=== PATIENT | female | born 1960 | race African-American/Black ===

== ENCOUNTER 2016-05-27 10:20 | Inpatient (IN) ==
[2016-05-27] MEDS ORDERED: 0.9 % Sodium Chloride 1,000 ML IVC ONE (10:29)
[2016-05-27] MEDS ORDERED: Ondansetron 4 MG/2 ML VIAL IVP STA (10:29)
[2016-05-27] MEDS ORDERED: *HR* HYDROmorphone (PF) 1 MG/ML SYRINGE IVP STA (10:55)
[2016-05-27 11:12] LABS: Basophils % 0.3 %; Eosinophils % 0.1 %; Hematocrit 36.2 % (35.3-44.9); Hemoglobin 12.5 g/dL (11.5-15.4); Immature Granulocytes % 0.3 % (0-4); Lymphocytes # 0.8 K/mcL (0.6-4.6); Lymphocytes % 6.9 %; Mean Corpuscular HGB Conc 34.5 g/dL (31.6-35.5); Mean Corpuscular Hemoglobin 29.7 pg (28.0-33.3); Mean Platelet Volume 10.5 fL (9.4-12.4); Monocytes # 0.2 K/mcL (0.0-1.3); Monocytes % 1.6 %; Neutrophils # 10.6 K/mcL (1.6-8.9); Platelet Count 335 K/mcL (140-400); Red Blood Count 4.21 M/mcL (3.82-4.97); Red Cell Distribution Width 12.7 % (11.5-14.5); Segmented Neutrophils % 90.8 %
[2016-05-27 11:18] LABS: INR 1.2; Prothrombin Time 13.4 Seconds (9.4-12.1)
--- NOTE | 2016-05-27 11:26 | Emergency Department Note ---
Disposition Clinical Impression: Dehydration Disposition: Admitted As Inpatient Condition: Fair Nausea/Vomiting/Diarrhea HPI - General Chief complaint: ED Nausea/Vomiting/Diarrhea Stated complaint: Vomiting since 1 am, fever/chills Time Seen by Provider: 05/27/16 10:37 Source: family Limitations: no limitations Nursing Notes Reviewed: Yes Vital Signs Reviewed: Yes - History of Present Illness HPI Narrative: Patient is a 56-year-old female who has a history of diabetes. History of strokes. She was brought in by private automobile with complaint of nausea vomiting diarrhea and abdominal pain. Accu-Chek in our ER is 457 mg/dL Pt Subjective Complaint: nausea, vomiting, diarrhea, abdominal pain Onset (ago): hour(s) - Related Data Home Medications Medication Instructions Recorded Confirmed Bethanechol [Urecholine] 25 mg PO TID 04/07/15 03/19/16 Gabapentin [Neurontin] 1,200 mg PO TID 04/07/15 03/19/16 Losartan [Cozaar] 50 mg PO DAILY 04/07/15 03/19/16 Albuterol Sulfate [Albuterol 2 puff IH QID PRN 02/27/16 03/19/16 Inhaler] Amlodipine [Norvasc] 5 mg PO DAILY 02/27/16 03/19/16 Budesonide/Formoterol 80/4.5 2 puff IH BID 02/27/16 03/19/16 [Symbicort 80/4.5] Calcium Carbonate/Vitamin D3 1 tab PO BIDWM 02/27/16 03/19/16 [Calcium 500-Vit D3 200 Caplet] Carboxymethylcellulos/Glycerin 1 drop BOTH EYES TID PRN 02/27/16 03/19/16 [Refresh Optive Gel Eye Drops] Cholecalciferol (Vitamin D3) 4,000 unit PO DAILY 02/27/16 03/19/16 [Vitamin D3] Famotidine [Pepcid] 20 mg PO BID 02/27/16 03/19/16 Insulin ASPART [Novolog Flexpen] 0 unit SQ TIDAC MDD per sliding 02/27/16 scale Lipase/Protease/Amylase [Creon Dr 1 each PO TIDWM 02/27/16 03/19/16 6,000 Units Capsule] Metformin [Glucophage] 500 mg PO BIDWM 02/27/16 03/19/16 Multivitamin-Min/Iron/FA/Vit K 1 each PO DAILY 02/27/16 03/19/16 [Multi-Day Plus Minerals Tablet] Omeprazole [PriLOSEC] 40 mg PO DAILY 02/27/16 03/19/16 TraMADol [Ultram] 100 mg PO QID PRN 02/27/16 03/19/16 Insulin Glargine [Lantus] 34 unit SQ DAILY 03/19/16 03/19/16 Loperamide [Imodium] 4 mg PO DAILY 03/19/16 03/19/16 Menthol [Icy Hot] 1 patch TD DAILY 03/19/16 03/19/16 Previous Rx's Medication Instructions Recorded Atorvastatin [Lipitor] 80 mg PO HS #60 tablet 03/01/16 Clopidogrel [Plavix] 75 mg PO DAILY #30 tablet 03/01/16 Nicotine Patch [Nicoderm] 14 mg TD DAILY #30 patch.td24 03/01/16 Paroxetine [Paxil] 20 mg PO DAILY #30 tablet 03/01/16 Alprazolam [Xanax 0.25 MG Tablet] 0.25 mg PO TID PRN #10 tablet 03/02/16 Promethazine [Phenergan] 25 mg PO Q8HR #10 tablet 03/19/16 Carvedilol 25 mg PO BID 30 Days 03/22/16 CloNIDine HCl 0.1 mg PO TID 30 Days 03/22/16 Hydrochlorothiazide 25 mg PO QPM 30 Days 03/22/16 Allergies Allergy/AdvReac Type Severity Reaction Status Date / Time codeine AdvReac Itching Verified 02/24/16 10:25 All systems ED: reviewed and negative except as stated. Past Medical History - Past Medical History Medical history: Reports: COPD, CVA, diabetes, hyperlipidemia, hypertension, other Surgical history: Reports: cholecystectomy, hysterectomy, orthopedic, other Psychiatric history: Reports: anxiety, depression NASCAR DRIVER history: Reports: no NASCAR DRIVER history, bilateral tubal ligation - Social History Smoking Status: Former smoker Smokeless Tobacco Status: No Alcohol use: Reports: none Drug use: Reports: none Physical Exam - General Limitations: no limitations General appearance: alert, in no apparent distress - Head Head exam: atraumatic - Eye Eye exam: Present: normal appearance - ENT ENT exam: normal exam - Neck Neck exam: Present: normal inspection - Chest Chest inspection: Present: normal inspection - Respiratory Respiratory exam: Present: normal lung sounds bilaterally - Cardiovascular Cardiovascular exam: Present: tachycardia - Abdominal Exam Abdominal exam: Present: soft, normal bowel sounds. Absent: distention, guarding, rebound, rigidity - Rectal Exam Rectal exam: Present: deferred - Extremities Exam Extremities exam: Present: normal inspection - Expanded Lower Extremity Exam Gait: observed and normal - Back Exam Back exam: Present: normal inspection - Neurological Exam Neurological exam: Present: alert, oriented X3 - Psychiatric Psychiatric exam: Present: normal affect - Skin Skin exam: Present: warm Course Vital Signs Temperature 98.0 F 05/27/16 10:24 Pulse Rate 126 05/27/16 10:24 Respiratory Rate 20 05/27/16 10:24 Blood Pressure 198/110 05/27/16 10:24 O2 Sat by Pulse Oximetry 97 05/27/16 10:24 Temperature 99.5 F 05/27/16 18:41 Pulse Rate 115 05/27/16 18:41 Respiratory Rate 14 05/27/16 18:41 Blood Pressure 190/96 05/27/16 18:41 O2 Sat by Pulse Oximetry 99 05/27/16 18:41 Oxygen Delivery Oxygen Delivery Room Air Nausea/Vomiting/Diarrhea - MDM Narrative Medical decision making narrative: Differential: Diabetic emergency versus diabetic ketoacidosis versus acute abdomen - Lab Data Lab results reviewed: Yes I reviewed the patient's lab results. Result diagrams: 05/27/16 11:00 05/27/16 11:00 Lab Results 05/27/16 05/27/16 05/27/16 Range/Units 11:00 11:00 11:00 WBC 11.7 H (4.3-11.1) K/mcL RBC 4.21 (3.82-4.97) M/mcL Hgb 12.5 (11.5-15.4) g/dL Hct 36.2 (35.3-44.9) % MCV 86.0 (83.0-100.0) fL MCH 29.7 (28.0-33.3) pg MCHC 34.5 (31.6-35.5) g/dL RDW 12.7 (11.5-14.5) % Plt Count 335 (140-400) K/mcL MPV 10.5 (9.4-12.4) fL Immature Gran % 0.3 (0-4) % Seg Neutrophils % 90.8 % Lymphocytes % 6.9 % Monocytes % 1.6 % Eosinophils % 0.1 % Basophils % 0.3 % Neutrophils # 10.6 H (1.6-8.9) K/mcL Lymphocytes # 0.8 (0.6-4.6) K/mcL Monocytes # 0.2 (0.0-1.3) K/mcL Eosinophils # 0.0 (0.0-0.6) K/mcL Basophils # 0.0 (0.0-0.2) K/mcL PT 13.4 H (9.4-12.1) Seconds INR 1.2 Sodium 139 (136-145) mEq/L Potassium 4.7 H (3.5-4.5) mEq/L Chloride 102 (98-109) mEq/L Carbon Dioxide 19 (19-29) mEq/L BUN 19 (7-20) mg/dL Creatinine 1.55 H (0.57-1.11) mg/dL Est GFR ( Amer) 42 L (> 60) Est GFR (Non-Af Amer) 35 L (> 60) BUN/Creatinine Ratio 12 (6-26) Glucose 534 H* (70-99) mg/dL POC Glucose (58-89) Calculated Osmolality 314 H (280-300) Calcium 10.7 (8.6-10.8) mg/dL Total Bilirubin 0.6 (0.2-1.2) mg/dL AST 18 (5-34) Units/L ALT 19 (0-55) Units/L Alkaline Phosphatase 159 H (38-126) Units/L Serum Total Protein 8.0 (6.0-8.3) g/dL Albumin 3.8 (3.5-5.0) g/dL Globulin 4.2 H (2.4-3.5) g/dL Albumin/Globulin Ratio 0.9 L (1.1-2.2) Urine Color (Yellow) Urine Clarity (Clear) Urine pH (5.0-8.0) pH Units Ur Specific [place] (1.010-1.025) Urine Protein (Neg-Trace) mg/dL Urine Glucose (UA) (Normal) mg/dL Urine Ketones (Negative) mg/dL Urine Blood (Negative) Urine Nitrite (Negative) Urine Bilirubin (Negative) Urine Urobilinogen (Normal) mg/dL Ur Leukocyte Esterase (Negative) Urine Microscopic RBC (0-3) per hpf Urine Microscopic WBC (0-3) per hpf Ur Squamous Epith Cells (None-Few) per lpf Amorphous Sediment (Few) Ur Culture Indicated? (NO) 05/27/16 05/27/16 Range/Units 11:23 12:00 WBC (4.3-11.1) K/mcL RBC (3.82-4.97) M/mcL Hgb (11.5-15.4) g/dL Hct (35.3-44.9) % MCV (83.0-100.0) fL MCH (28.0-33.3) pg MCHC (31.6-35.5) g/dL RDW (11.5-14.5) % Plt Count (140-400) K/mcL MPV (9.4-12.4) fL Immature Gran % (0-4) % Seg Neutrophils % % Lymphocytes % % Monocytes % % Eosinophils % % Basophils % % Neutrophils # (1.6-8.9) K/mcL Lymphocytes # (0.6-4.6) K/mcL Monocytes # (0.0-1.3) K/mcL Eosinophils # (0.0-0.6) K/mcL Basophils # (0.0-0.2) K/mcL PT (9.4-12.1) Seconds INR Sodium (136-145) mEq/L Potassium (3.5-4.5) mEq/L Chloride (98-109) mEq/L Carbon Dioxide (19-29) mEq/L BUN (7-20) mg/dL Creatinine (0.57-1.11) mg/dL Est GFR ( Amer) (> 60) Est GFR (Non-Af Amer) (> 60) BUN/Creatinine Ratio (6-26) Glucose (70-99) mg/dL POC Glucose 457 H* (58-89) Calculated Osmolality (280-300) Calcium (8.6-10.8) mg/dL Total Bilirubin (0.2-1.2) mg/dL AST (5-34) Units/L ALT (0-55) Units/L Alkaline Phosphatase (38-126) Units/L Serum Total Protein (6.0-8.3) g/dL Albumin (3.5-5.0) g/dL Globulin (2.4-3.5) g/dL Albumin/Globulin Ratio (1.1-2.2) Urine Color Yellow (Yellow) Urine Clarity Slightly Cloudy A (Clear) Urine pH 6.0 (5.0-8.0) pH Units Ur Specific [place] 1.015 (1.010-1.025) Urine Protein >=300 H (Neg-Trace) mg/dL Urine Glucose (UA) >=1000 H (Normal) mg/dL Urine Ketones 40 H (Negative) mg/dL Urine Blood Moderate H (Negative) Urine Nitrite Negative (Negative) Urine Bilirubin Negative (Negative) Urine Urobilinogen Normal (Normal) mg/dL Ur Leukocyte Esterase Negative (Negative) Urine Microscopic RBC 3-5 H (0-3) per hpf Urine Microscopic WBC 0-3 (0-3) per hpf Ur Squamous Epith Cells Few (None-Few) per lpf Amorphous Sediment Many H (Few) Ur Culture Indicated? NO (NO) - Radiology Data Radiology results reviewed: Yes I reviewed the patient's radiology results. ITS Impressions Abdomen/Pelvis CT 05/27/16 10:33 IMPRESSION: Small to moderate moderate hiatal hernia. Gas within the nondependent urinary bladder, possibly related to recent instrumentation. Correlation is recommended. D/ / Inna Kapoor Cha, MD / Inna Kapoor Cha, MD Interpreting Provider: Inna Kapoor Cha, MD
[2016-05-27 11:27] LABS: Albumin 3.8 g/dL (3.5-5.0); Albumin/Globulin Ratio 0.9 (1.1-2.2); Bilirubin,Total 0.6 mg/dL (0.2-1.2); Calcium 10.7 mg/dL (8.6-10.8); Globulin 4.2 g/dL (2.4-3.5); Potassium 4.7 mEq/L (3.5-4.5)
[2016-05-27] MEDS ORDERED: Insulin Regular, Human 100 UNIT/ML SQ STA (11:37)
[2016-05-27 12:05] LABS: Bilirubin,Urine Negative (Negative); Blood,Urine Moderate (Negative); Clarity,Urine Slightly Cloudy (Clear); Color,Urine Yellow (Yellow); Glucose,Urine (UA) >=1000 mg/dL (Normal); Ketones,Urine 40 mg/dL (Negative); Leukocyte Esterase,Urine Negative (Negative); Nitrite,Urine Negative (Negative); Protein,Urine >=300 mg/dL (Neg-Trace); Specific Gravity,Urine 1.015 (1.010-1.025); Urobilinogen,Urine Normal (Normal)
[2016-05-27 12:13] LABS: Amorphous Sediment,Urine Many (Few); Squamous Epithelial Cell,Urine Few per lpf (None-Few); WBC,Urine 0-3 per hpf (0-3)
[2016-05-27] MEDS ORDERED: 0.9 % Sodium Chloride 1,000 ML IVC SCH (13:50)
[2016-05-27] MEDS ORDERED: Artificial Tears SOLN 15 ML BOTTLE BOTH EYES PRN (13:50)
[2016-05-27] MEDS ORDERED: Naloxone 0.4 MG/ML INJ IVP PRN (13:50)
[2016-05-27] MEDS ORDERED: *HR* Propranolol 1 MG/ML VIAL IVP ONE (14:37)
[2016-05-27] MEDS: Gabapentin 400 MG CAPSULE PO SCH ×2 (16:11→21:12)
[2016-05-27] MEDS: *HR* Metformin 500 MG TABLET PO SCH (16:11)
--- NOTE | 2016-05-27 16:51 | Internal Med History&Physical ---
Date of Encounter: 05/27/16 Time of Encounter: 16:20 Assessment and Plan (1) Acute gastroenteritis Current visit: Yes Status: Acute She will be given IV fluids and prn anti-emetics. Further workup will be done as needed. (2) Chronic kidney disease, stage 3 Current visit: No Status: Chronic Will monitor renal indices (3) Diabetes type 2, uncontrolled Current visit: No Status: Chronic We will check hemoglobin A1c in a.m. We will hold metformin because of renal function. Continue Levemir and do Accu-Cheks with SSI.. Qualifiers: Diabetes mellitus complication status: with kidney complications Diabetes mellitus complication detail: with chronic kidney disease Diabetes mellitus ferry terminal supervisor insulin use: with ferry terminal supervisor use Chronic kidney disease stage: stage 3 (moderate) Qualified Code(s): E11.22 - Type 2 diabetes mellitus with diabetic chronic kidney disease; E11.65 - Type 2 diabetes mellitus with hyperglycemia; N18.3 - Chronic kidney disease, stage 3 (moderate); Z79.4 - terminal makeup operator (current) use of insulin (4) Hypertension Current visit: No Status: Chronic Continue Norvasc, Coreg, and increase clonidine. We will hold Cozaar and HCTZ because of renal function. Qualifiers: Hypertension type: essential hypertension Qualified Code(s): I10 - Essential (primary) hypertension (5) Urinary retention Current visit: No Status: Suspected Continue Urecholine. Internal Medicine - H&P: HPI Chief complaint: Vomiting and diarrhea Admitted From: Home Plans for Post Hospital Care: Home History of present illness: Ms. Oakes is a 56 year old female who came to the emergency room complaining of vomiting and diarrhea onset May 24. She has some diffuse abdominal discomfort that seems to be most noticeable in her left lower abdominal area. She denies melena or hematochezia. She was evaluated in emergency room and felt to have gastroenteritis. She was admitted to [facility] floor for ongoing care needs. GI history is positive for cholecystectomy. She has history of pancreatitis and takes pancreatic enzyme replacements. She denies disorders of her liver. She does have GERD. Past Med Surg Social Fam HX - Past Medical History Medical history: COPD, CVA, diabetes, hyperlipidemia, hypertension, other Psychiatric history: anxiety, depression - Past Surgical History Surgical History: cholecystectomy, hysterectomy, orthopedic, other - Social History Smoking Status: Former smoker Smokeless Tobacco Status: No Alcohol use: none Drug use: none - Family History Mother Adopted: No Family Member Ethnicity: Non- Living Status: Hx Family Cardiac Disorders: Yes (HTN) Hx Family Respiratory Disorders: No Hx Family Cancer: No Hx Family GI Disorders: No Hx Family Endocrine Disorder: Yes Hx Family Neuromuscular Disorders: No Hx Family Neurologic Disorders: No Hx Family HEENT Disorders: Yes (Goiter) Hx Family Autoimmune Disorders: No Internal Medicine - H&P: Meds Bethanechol [Urecholine] 25 mg PO TID 04/07/15 [History] Gabapentin [Neurontin] 1,200 mg PO TID 04/07/15 [History] Losartan [Cozaar] 50 mg PO DAILY 04/07/15 [History] Albuterol Sulfate [Albuterol Inhaler] 2 puff IH QID PRN 02/27/16 [History] Amlodipine [Norvasc] 5 mg PO DAILY 02/27/16 [History] Budesonide/Formoterol 80/4.5 [Symbicort 80/4.5] 2 puff IH BID 02/27/16 [History ] Calcium Carbonate/Vitamin D3 [Calcium 500-Vit D3 200 Caplet] 1 tab PO BIDWM 08/08 [History] Carboxymethylcellulos/Glycerin [Refresh Optive Gel Eye Drops] 1 drop BOTH EYES TID PRN 02/27/16 [History] Cholecalciferol (Vitamin D3) [Vitamin D3] 4,000 unit PO DAILY 02/27/16 [History] Famotidine [Pepcid] 20 mg PO BID 02/27/16 [History] Insulin ASPART [Novolog Flexpen] 0 unit SQ TIDAC MDD per sliding scale 02/27/16 [History] Lipase/Protease/Amylase [Creon Dr 6,000 Units Capsule] 1 each PO TIDWM 02/27/16 [History] Metformin [Glucophage] 500 mg PO BIDWM 02/27/16 [History] Multivitamin-Min/Iron/FA/Vit K [Multi-Day Plus Minerals Tablet] 1 each PO DAILY 02/27/16 [History] Omeprazole [PriLOSEC] 40 mg PO DAILY 02/27/16 [History] TraMADol [Ultram] 100 mg PO QID PRN 02/27/16 [History] Atorvastatin [Lipitor] 80 mg PO HS #60 tablet 03/01/16 [Rx] Clopidogrel [Plavix] 75 mg PO DAILY #30 tablet 03/01/16 [Rx] Nicotine Patch [Nicoderm] 14 mg TD DAILY #30 patch.td24 03/01/16 [Rx] Paroxetine [Paxil] 20 mg PO DAILY #30 tablet 03/01/16 [Rx] Alprazolam [Xanax 0.25 MG Tablet] 0.25 mg PO TID PRN #10 tablet 03/02/16 [Rx] Insulin Glargine [Lantus] 34 unit SQ DAILY 03/19/16 [History] Loperamide [Imodium] 4 mg PO DAILY 03/19/16 [History] Menthol [Icy Hot] 1 patch TD DAILY 03/19/16 [History] Promethazine [Phenergan] 25 mg PO Q8HR #10 tablet 03/19/16 [Rx] Carvedilol 25 mg PO BID 30 Days 03/22/16 [Rx] CloNIDine HCl 0.1 mg PO TID 30 Days 03/22/16 [Rx] Hydrochlorothiazide 25 mg PO QPM 30 Days 03/22/16 [Rx] Allergies codeine Adverse Reaction (Verified 02/24/16 10:25) Itching All Systems PM: A 10-system review of systems was performed and is negative for pertinent findings except as documented above in the HPI. Review of systems: Gen.: Her weight has decreased from 103 kg in May 2015 to 85.79 kg at present. Cardiovascular: She has history of hypertension but denies RI heart failure angina DVT or pulmonary embolus. She had an echocardiogram 07/07/2015 which showed LVEF of 65-70% with moderate LV diastolic dysfunction. Left atrial size was enlarged at 4.9 cm. The interventricular septum and posterior wall thickness measurements were 0.9 cm each. There was mild tricuspid regurgitation noted. A Regadenoson nuclear stress test done 04/08/2015 showed no evidence of ischemia or infarct. The LVEF was 67%. Respiratory: She smoked from age 19 until 4 months ago. She smoked up to one pack per day. She does not were home oxygen and has not had PFTs and has not been tested for HUONG. GI: As per history of present illness : She has CKD stage 3-4. 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 She states her bladder empties adequately on the medication. She denies hematuria dysuria or kidney stones Neurologic: She has history of diabetic neuropathy. She had a stroke January 2016 leaving her with left arm and leg weakness and dysphasia. She denies seizures Endocrine: She was diagnosed with DM2 in 1988. She has history of goiter and hyperlipidemia Hematology/oncology: She denies internal malignancies. She is had anemia in the past which has resolved Psychiatric: She has depression but no significant anxiety or other mental health issues Musk skeletal: She has DJD and has had "tennis elbow" on the left several years ago. She has not had documented gout but uric acid level was elevated at 6.9 on 03/21/2016. - Constitutional Vitals: Temp Pulse Resp BP Pulse Ox 98.5 F 130 18 216/125 99 05/27/16 14:17 05/27/16 14:17 05/27/16 14:17 05/27/16 14:17 05/27/16 14:17 Exam: Gen.: She is a well-developed well-nourished female who appears in no severe distress at present time HEENT: Head is atraumatic and normocephalic. Eyes: EOMI. There is no scleral icterus. Mouth: Mucosa is moist. Neck: Supple and nontender. There is no thyromegaly or adenopathy noted. Heart: Regular without murmurs gallops or ectopics per Lungs: No wheezes or crackles are heard. Abdomen: Bowel sounds are diminished. Abdomen is nontender to palpation. She is nauseated and had dry heaves during examination Extremities: There is no cyanosis edema or clubbing noted. Dorsalis pedis and posttibial pulses are trace palpable bilaterally. Neurologic: Mental status: She is able to speak but requires more concentration pronouncing her words than normal. Cranial nerves: Smile is symmetric. Forehead wrinkles bilaterally. Tongue protrudes midline. EOMI. Motor: There is no pronator drift. Rapid finger movements are delayed bilaterally and less accurate on the left hand than the right. She is left-handed. Cerebellar: Finger to nose is intact bilaterally. Skin: Warm and dry Internal Med - H&P Results - Labs CBC & Chem 7: 05/27/16 11:00 05/27/16 11:00
[2016-05-27] MEDS: Ondansetron 4 MG/2 ML VIAL IVP PRN (18:10)
[2016-05-27] MEDS ORDERED: Famotidine 20 MG TABLET PO SCH (21:00)
[2016-05-27] MEDS: Budesonide/Formoterol 80/4.5 MDI IH SCH (22:15)
[2016-05-28] MEDS: *HR* Promethazine 25 MG/ML VIAL IVP PRN ×2 (02:17→19:08)
[2016-05-28 07:48] LABS: Basophils # 0.1 K/mcL (0.0-0.2); Basophils % 0.5 %; Eosinophils % 0.3 %; Hematocrit 37.1 % (35.3-44.9); Immature Granulocytes % 0.4 % (0-4); Lymphocytes # 1.6 K/mcL (0.6-4.6); Lymphocytes % 14.2 %; Mean Corpuscular HGB Conc 32.3 g/dL (31.6-35.5); Mean Corpuscular Volume 92.8 fL (83.0-100.0); Mean Platelet Volume 10.2 fL (9.4-12.4); Monocytes # 0.7 K/mcL (0.0-1.3); Platelet Count 302 K/mcL (140-400); Red Cell Distribution Width 13.2 % (11.5-14.5); Segmented Neutrophils % 78.6 %
[2016-05-28 08:07] LABS: Calcium 9.6 mg/dL (8.6-10.8); Magnesium 1.4 mg/dL (1.6-2.6); Potassium 4.1 mEq/L (3.5-4.5)
[2016-05-28] MEDS: Gabapentin 400 MG CAPSULE PO SCH ×3 (08:30→21:30)
[2016-05-28] MEDS: Multivit/Ca/Min/Fe/FA 1 TAB TABLET PO SCH (08:30)
[2016-05-28] MEDS: Nicotine 14 MG PATCH.TD24 TD SCH (08:30)
[2016-05-28] MEDS: Cholecalciferol (D-3) 1,000 UNIT TABLET PO SCH (08:31)
[2016-05-28] MEDS ORDERED: Insulin DETEMIR 100 UNIT/ML X5UNITS SQ SCH ×2 (09:00→11:47)
[2016-05-28] MEDS ORDERED: D5% in Water 1,000 ML IV PRN ×2 (09:06→13:44)
[2016-05-28] MEDS ORDERED: *HR* Dextrose 50 % in Water (Syg) 50 ML SYRINGE IVP PRN (09:06)
[2016-05-28] MEDS ORDERED: Dextrose Gel 15 GM PO PRN ×2 (09:06)
[2016-05-28] MEDS: Budesonide/Formoterol 80/4.5 MDI IH SCH ×2 (11:01→21:39)
[2016-05-28] MEDS: Insulin LISPRO 300 UNITS/3 ML VIAL SQ SCH ×2 (11:39→19:02)
--- NOTE | 2016-05-28 11:40 | Internal Med Progress Note ---
Date of Encounter: 05/28/16 Time of Encounter: 11:30 - Assessment and plan (1) Acute gastroenteritis Current Visit: Yes Status: Acute Assessment and plan: May 28. Will advance diet to full liquids. Continue IV fluids and prn anti -emetics. Recheck labs in a.m. (2) Chronic kidney disease, stage 3 Current Visit: No Status: Chronic Assessment and plan: May 28. Renal indices have worsened. We will continue with IV fluids and recheck labs in a.m. (3) Diabetes type 2, uncontrolled Current Visit: No Status: Chronic Assessment and plan: May 28. Hemoglobin A1c is pending. Will increase Levemir and continue Accu -Cheks with SSI. Qualifiers: Diabetes mellitus complication status: with kidney complications Diabetes mellitus complication detail: with chronic kidney disease Diabetes mellitus tow mate insulin use: with mcfp use Chronic kidney disease stage: stage 3 (moderate) Qualified Code(s): E11.22 - Type 2 diabetes mellitus with diabetic chronic kidney disease; E11.65 - Type 2 diabetes mellitus with hyperglycemia; N18.3 - Chronic kidney disease, stage 3 (moderate); Z79.4 - long-term (current) use of insulin (4) Hypertension Current Visit: No Status: Chronic Assessment and plan: May 28. Continue Norvasc, Coreg, and increased clonidine dose. Continue to hold Cozaar and HCTZ. Qualifiers: Hypertension type: essential hypertension Qualified Code(s): I10 - Essential (primary) hypertension (5) Urinary retention Current Visit: No Status: Suspected Assessment and plan: May 28. Continue Urecholine (6) Hypomagnesemia Current Visit: Yes Status: Acute Assessment and plan: May 28. Probably secondary to diuretic use with vomiting and diarrhea. We will give supplemental magnesium. - Subjective Interval history: May 28. She has no new complaints - Constitutional Vitals: Temp Pulse Resp BP Pulse Ox 98.7 F 90 18 139/79 95 05/28/16 11:00 05/28/16 11:00 05/28/16 11:00 05/28/16 11:00 05/28/16 11:00 Exam: She is resting comfortably in bed. Her affect is bright and cheerful. I reviewed her medications and lab results. Internal Medicine: Result - Labs CBC & Chem 7: 05/28/16 07:13 05/28/16 07:13 Labs: Short CBC 05/28/16 Range/Units 07:13 WBC 11.5 H (4.3-11.1) K/mcL Hgb 12.0 (11.5-15.4) g/dL Hct 37.1 (35.3-44.9) % Plt Count 302 (140-400) K/mcL Neutrophils # 9.0 H (1.6-8.9) K/mcL BMP 05/28/16 07:13 Sodium 139 Potassium 4.1 Chloride 104 Carbon Dioxide 21 BUN 28 H Creatinine 2.62 H D Glucose 453 H Calcium 9.6 - ABG Interpretation ABG results: PT/INR, D-dimer PT 13.4 Seconds (9.4-12.1) H 05/27/16 11:00 Consult Discharge Plan - Plan Referrals: NO,PCP [Primary Care Provider] - 1 week
[2016-05-28] MEDS: Ondansetron 4 MG/2 ML VIAL IVP PRN (13:10)
[2016-05-28] MEDS: Magnesium Oxide 400 MG TABLET PO SCH ×2 (13:20→21:29)
[2016-05-28 16:25] LABS: Hemoglobin A1C 8.9 %
[2016-05-28] MEDS ORDERED: Insulin LISPRO 300 UNITS/3 ML VIAL SQ ONE (21:44)
[2016-05-28] MEDS ORDERED: Insulin DETEMIR 100 UNIT/ML per UNIT SQ ONE (22:00)
[2016-05-29 06:00] LABS: Basophils % 0.4 %; Eosinophils # 0.3 K/mcL (0.0-0.6); Eosinophils % 2.9 %; Hematocrit 28.9 % (35.3-44.9); Immature Granulocytes % 0.3 % (0-4); Lymphocytes # 2.2 K/mcL (0.6-4.6); Lymphocytes % 23.5 %; Mean Corpuscular HGB Conc 34.6 g/dL (31.6-35.5); Mean Corpuscular Volume 86.8 fL (83.0-100.0); Mean Platelet Volume 10.2 fL (9.4-12.4); Monocytes # 0.6 K/mcL (0.0-1.3); Monocytes % 6.2 %; Neutrophils # 6.4 K/mcL (1.6-8.9); Platelet Count 234 K/mcL (140-400); Red Blood Count 3.33 M/mcL (3.82-4.97); Red Cell Distribution Width 12.5 % (11.5-14.5); Segmented Neutrophils % 66.7 %
[2016-05-29 06:10] LABS: Calcium 8.7 mg/dL (8.6-10.8); Potassium 3.6 mEq/L (3.5-4.5)
[2016-05-29] MEDS: Insulin LISPRO 300 UNITS/3 ML VIAL SQ SCH ×4 (08:14→21:26)
[2016-05-29] MEDS: Budesonide/Formoterol 80/4.5 MDI IH SCH ×2 (09:13→21:54)
[2016-05-29] MEDS: Gabapentin 400 MG CAPSULE PO SCH ×3 (10:24→21:20)
[2016-05-29] MEDS: Magnesium Oxide 400 MG TABLET PO SCH ×2 (10:25→21:21)
[2016-05-29] MEDS: Cholecalciferol (D-3) 1,000 UNIT TABLET PO SCH (10:25)
[2016-05-29] MEDS: Multivit/Ca/Min/Fe/FA 1 TAB TABLET PO SCH (10:26)
[2016-05-29] MEDS: Nicotine 14 MG PATCH.TD24 TD SCH (10:30)
--- NOTE | 2016-05-29 14:46 | Internal Med Progress Note ---
Date of Encounter: 05/29/16 Time of Encounter: 08:45 - Assessment and plan (1) Acute gastroenteritis Current Visit: Yes Status: Acute Assessment and plan: May 28. Will advance diet to full liquids. Continue IV fluids and prn anti -emetics. Recheck labs in a.m. May 29. WBC has normalized. Continue present management (2) Chronic kidney disease, stage 3 Current Visit: No Status: Chronic Assessment and plan: May 28. Renal indices have worsened. We will continue with IV fluids and recheck labs in a.m. May 29. Creatinine has improved to 2.2 with estimated GFR rising to 23. Continue present management (3) Diabetes type 2, uncontrolled Current Visit: No Status: Chronic Assessment and plan: May 28. Hemoglobin A1c is pending. Will increase Levemir and continue Accu -Cheks with SSI. May 29. Hemoglobin A1c was elevated at 8.9% on 05/28/2016. Continue present management Qualifiers: Diabetes mellitus complication status: with kidney complications Diabetes mellitus complication detail: with chronic kidney disease Diabetes mellitus jail insulin use: with jail use Chronic kidney disease stage: stage 3 (moderate) Qualified Code(s): E11.22 - Type 2 diabetes mellitus with diabetic chronic kidney disease; E11.65 - Type 2 diabetes mellitus with hyperglycemia; N18.3 - Chronic kidney disease, stage 3 (moderate); Z79.4 - typing element machine operator (current) use of insulin (4) Hypertension Current Visit: No Status: Chronic Assessment and plan: May 28. Continue Norvasc, Coreg, and increased clonidine dose. Continue to hold Cozaar and HCTZ. May 29. Continue Norvasc, Coreg, and clonidine. Her pressures are fluctuating but overall satisfactory. Qualifiers: Hypertension type: essential hypertension Qualified Code(s): I10 - Essential (primary) hypertension (5) Urinary retention Current Visit: No Status: Suspected Assessment and plan: May 28. Continue Urecholine May 29. Urecholine was reduced yesterday to 12.5 mg 3 times a day. (6) Hypomagnesemia Current Visit: Yes Status: Acute Assessment and plan: May 28. Probably secondary to diuretic use with vomiting and diarrhea. We will give supplemental magnesium. May 29. Continue supplemental magnesium. (7) Anemia Current Visit: Yes Status: Acute Assessment and plan: May 29. We will order anemia testing in a.m. Qualifiers: Anemia type: unspecified type Qualified Code(s): D64.9 - Anemia, unspecified - Subjective Interval history: May 28. She has no new complaints May 29. She feels better. She feels she will need to go to a SNF for several days before going home. - Constitutional Vitals: Temp Pulse Resp BP Pulse Ox 97.6 F 76 16 134/71 98 05/29/16 14:35 05/29/16 14:35 05/29/16 14:35 05/29/16 14:35 05/29/16 14:35 Exam: She is resting comfortably in bed and appears in no acute distress. Her affect is bright and cheerful. Reviewed her medications and lab results. Internal Medicine: Result - Labs CBC & Chem 7: 05/29/16 05:45 05/29/16 05:45 Labs: Short CBC 05/29/16 Range/Units 05:45 WBC 9.6 (4.3-11.1) K/mcL Hgb 10.0 L D (11.5-15.4) g/dL Hct 28.9 L (35.3-44.9) % Plt Count 234 (140-400) K/mcL Neutrophils # 6.4 (1.6-8.9) K/mcL BMP 05/29/16 05:45 Sodium 137 Potassium 3.6 Chloride 105 Carbon Dioxide 24 BUN 41 H D Creatinine 2.24 H Glucose 94 Calcium 8.7 - ABG Interpretation ABG results: PT/INR, D-dimer PT 13.4 Seconds (9.4-12.1) H 05/27/16 11:00 Consult Discharge Plan - Plan Referrals: NO,PCP [Primary Care Provider] - 1 week
[2016-05-29] MEDS: 0.45 % Sodium Chloride w/KCl 20 MEQ/1,000 ML MLS IVC SCH (15:07)
[2016-05-29] MEDS: Insulin DETEMIR 100 UNIT/ML X5UNITS SQ SCH (21:22)
[2016-05-30] MEDS: 0.45 % Sodium Chloride w/KCl 20 MEQ/1,000 ML MLS IVC SCH ×2 (03:17→17:09)
[2016-05-30] MEDS: *HR* Enoxaparin 40 MG/0.4 ML SYRINGE SQ SCH (05:46)
[2016-05-30] MEDS: Nicotine 14 MG PATCH.TD24 TD SCH (08:16)
[2016-05-30] MEDS: Magnesium Oxide 400 MG TABLET PO SCH (08:16)
[2016-05-30] MEDS: Cholecalciferol (D-3) 1,000 UNIT TABLET PO SCH (08:16)
[2016-05-30] MEDS: Multivit/Ca/Min/Fe/FA 1 TAB TABLET PO SCH (08:16)
[2016-05-30] MEDS: Gabapentin 400 MG CAPSULE PO SCH ×3 (08:17→22:17)
[2016-05-30] MEDS: Insulin LISPRO 300 UNITS/3 ML VIAL SQ SCH ×3 (08:17→16:16)
[2016-05-30 08:45] LABS: Alanine Aminotransferase 12 Units/L (0-55); Albumin 2.8 g/dL (3.5-5.0); Albumin/Globulin Ratio 0.8 (1.1-2.2); Alkaline Phosphatase 112 Units/L (38-126); Aspartate Amino Transferase 15 Units/L (5-34); BUN/Creatinine Ratio 28 (6-26); Bilirubin,Total 0.3 mg/dL (0.2-1.2); Blood Urea Nitrogen 29 mg/dL (7-20); Calcium 9.1 mg/dL (8.6-10.8); Carbon Dioxide 24 mEq/L (19-29); Chloride 108 mEq/L (98-109); Globulin 3.3 g/dL (2.4-3.5); Glucose 201 mg/dL (70-99); Magnesium 1.8 mg/dL (1.6-2.6); Osmolality,Calculated 300 (280-300); Potassium 4.3 mEq/L (3.5-4.5); Sodium 139 mEq/L (136-145); Total Protein 6.1 g/dL (6.0-8.3); Uric Acid 5.9 mg/dL (2.6-6.0); eGFR For African Americans > 60 (> 60); eGFR For Non-African Americans 54 (> 60)
[2016-05-30] MEDS: Budesonide/Formoterol 80/4.5 MDI IH SCH ×2 (10:27→20:44)
--- NOTE | 2016-05-30 11:13 | Internal Med Progress Note ---
Date of Encounter: 05/30/16 Time of Encounter: 11:05 - Assessment and plan (1) Acute gastroenteritis Current Visit: Yes Status: Acute Assessment and plan: May 28. Will advance diet to full liquids. Continue IV fluids and prn anti -emetics. Recheck labs in a.m. May 29. WBC has normalized. Continue present management May 30. She reports no further vomiting or diarrhea. Continue present management (2) Chronic kidney disease, stage 3 Current Visit: No Status: Chronic Assessment and plan: May 28. Renal indices have worsened. We will continue with IV fluids and recheck labs in a.m. May 29. Creatinine has improved to 2.2 with estimated GFR rising to 23. Continue present management May 30. Creatinine has decreased 1.05 with estimated GFR 54. Continue present management (3) Diabetes type 2, uncontrolled Current Visit: No Status: Chronic Assessment and plan: May 28. Hemoglobin A1c is pending. Will increase Levemir and continue Accu -Cheks with SSI. May 29. Hemoglobin A1c was elevated at 8.9% on 05/28/2016. Continue present management May 30. Blood sugars are reasonably controlled. Continue Levemir 45 units at bedtime. We will restart Glucophage Qualifiers: Diabetes mellitus complication status: with kidney complications Diabetes mellitus complication detail: with chronic kidney disease Diabetes mellitus retirement insulin use: with retirement use Chronic kidney disease stage: stage 3 (moderate) Qualified Code(s): E11.22 - Type 2 diabetes mellitus with diabetic chronic kidney disease; E11.65 - Type 2 diabetes mellitus with hyperglycemia; N18.3 - Chronic kidney disease, stage 3 (moderate); Z79.4 - senior living (current) use of insulin (4) Hypertension Current Visit: No Status: Chronic Assessment and plan: May 28. Continue Norvasc, Coreg, and increased clonidine dose. Continue to hold Cozaar and HCTZ. May 29. Continue Norvasc, Coreg, and clonidine. Her pressures are fluctuating but overall satisfactory. Qualifiers: Hypertension type: essential hypertension Qualified Code(s): I10 - Essential (primary) hypertension (5) Urinary retention Current Visit: No Status: Suspected Assessment and plan: May 28. Continue Urecholine May 29. Urecholine was reduced yesterday to 12.5 mg 3 times a day. May 30. Continue lower dose Urecholine (6) Hypomagnesemia Current Visit: Yes Status: Acute Assessment and plan: May 28. Probably secondary to diuretic use with vomiting and diarrhea. We will give supplemental magnesium. May 29. Continue supplemental magnesium. May 30. Magnesium level is normal at 1.8. We will reduce dose of magnesium oxide (7) Anemia Current Visit: Yes Status: Acute Assessment and plan: May 29. We will order anemia testing in a.m. May 30. Anemia testing is pending Qualifiers: Anemia type: unspecified type Qualified Code(s): D64.9 - Anemia, unspecified - Subjective Interval history: May 28. She has no new complaints May 29. She feels better. She feels she will need to go to a SNF for several days before going home. May 30. She feels better and has no new complaints - Constitutional Vitals: Temp Pulse Resp BP Pulse Ox 98.3 F 72 16 149/74 98 05/30/16 07:14 05/30/16 09:29 05/30/16 07:14 05/30/16 09:29 05/30/16 08:29 Exam: She is resting comfortably in bed. Her affect is bright and cheerful. I reviewed her medications and lab results. Internal Medicine: Result - Labs CBC & Chem 7: 05/29/16 05:45 05/30/16 07:39 Labs: BMP 05/30/16 07:39 Sodium 139 Potassium 4.3 Chloride 108 Carbon Dioxide 24 BUN 29 H D Creatinine 1.05 D Glucose 201 H Calcium 9.1 Liver Function 05/30/16 Range/Units 07:39 Total Bilirubin 0.3 (0.2-1.2) mg/dL AST 15 (5-34) Units/L ALT 12 (0-55) Units/L Alkaline Phosphatase 112 (38-126) Units/L Albumin 2.8 L D (3.5-5.0) g/dL - ABG Interpretation ABG results: PT/INR, D-dimer PT 13.4 Seconds (9.4-12.1) H 05/27/16 11:00 Consult Discharge Plan - Plan Referrals: NO,PCP [Primary Care Provider] - 1 week
[2016-05-30] MEDS: *HR* Metformin 500 MG TABLET PO SCH (16:15)
[2016-05-30 16:39] LABS: % Iron Saturation 11 % (15-50); Iron 33 mcg/dL (50-170); Transferrin 224 mg/dL (180-382)
[2016-05-30 17:00] LABS: Ferritin 116 ng/ml (5-204)
[2016-05-30] MEDS: Insulin DETEMIR 100 UNIT/ML X5UNITS SQ SCH (22:08)
[2016-05-31] MEDS: Insulin LISPRO 300 UNITS/3 ML VIAL SQ SCH ×5 (01:52→21:04)
[2016-05-31] MEDS: 0.45 % Sodium Chloride w/KCl 20 MEQ/1,000 ML MLS IVC SCH (07:03)
[2016-05-31] MEDS: *HR* Enoxaparin 40 MG/0.4 ML SYRINGE SQ SCH (07:09)
[2016-05-31] MEDS: Magnesium Oxide 400 MG TABLET PO SCH (08:16)
[2016-05-31] MEDS: Cholecalciferol (D-3) 1,000 UNIT TABLET PO SCH (08:16)
[2016-05-31] MEDS: Gabapentin 400 MG CAPSULE PO SCH ×3 (08:17→21:07)
[2016-05-31] MEDS: Multivit/Ca/Min/Fe/FA 1 TAB TABLET PO SCH (08:18)
[2016-05-31] MEDS: *HR* Metformin 500 MG TABLET PO SCH ×2 (08:18→17:11)
[2016-05-31] MEDS: Budesonide/Formoterol 80/4.5 MDI IH SCH ×2 (10:03→22:12)
[2016-05-31] MEDS: Nicotine 14 MG PATCH.TD24 TD SCH (11:55)
--- NOTE | 2016-05-31 17:01 | Internal Med Progress Note ---
Date of Encounter: 05/31/16 Time of Encounter: 16:50 - Assessment and plan (1) Acute gastroenteritis Current Visit: Yes Status: Acute Assessment and plan: May 28. Will advance diet to full liquids. Continue IV fluids and prn anti -emetics. Recheck labs in a.m. May 29. WBC has normalized. Continue present management May 30. She reports no further vomiting or diarrhea. Continue present management May 31. Resolved. Will recheck labs in a.m. (2) Chronic kidney disease, stage 3 Current Visit: No Status: Chronic Assessment and plan: May 28. Renal indices have worsened. We will continue with IV fluids and recheck labs in a.m. May 29. Creatinine has improved to 2.2 with estimated GFR rising to 23. Continue present management May 30. Creatinine has decreased 1.05 with estimated GFR 54. Continue present management May 31. Will recheck labs in a.m. (3) Diabetes type 2, uncontrolled Current Visit: No Status: Chronic Assessment and plan: May 28. Hemoglobin A1c is pending. Will increase Levemir and continue Accu -Cheks with SSI. May 29. Hemoglobin A1c was elevated at 8.9% on 05/28/2016. Continue present management May 30. Blood sugars are reasonably controlled. Continue Levemir 45 units at bedtime. We will restart Glucophage May 31. Continue Levemir and Glucophage. Qualifiers: Diabetes mellitus complication status: with kidney complications Diabetes mellitus complication detail: with chronic kidney disease Diabetes mellitus director long term care insulin use: with director long term care use Chronic kidney disease stage: stage 3 (moderate) Qualified Code(s): E11.22 - Type 2 diabetes mellitus with diabetic chronic kidney disease; E11.65 - Type 2 diabetes mellitus with hyperglycemia; N18.3 - Chronic kidney disease, stage 3 (moderate); Z79.4 - local intermodal truck driver (current) use of insulin (4) Hypertension Current Visit: No Status: Chronic Assessment and plan: May 28. Continue Norvasc, Coreg, and increased clonidine dose. Continue to hold Cozaar and HCTZ. May 29. Continue Norvasc, Coreg, and clonidine. Her pressures are fluctuating but overall satisfactory. Qualifiers: Hypertension type: essential hypertension Qualified Code(s): I10 - Essential (primary) hypertension (5) Urinary retention Current Visit: No Status: Suspected Assessment and plan: May 28. Continue Urecholine May 29. Urecholine was reduced yesterday to 12.5 mg 3 times a day. May 30. Continue lower dose Urecholine (6) Hypomagnesemia Current Visit: Yes Status: Acute Assessment and plan: May 28. Probably secondary to diuretic use with vomiting and diarrhea. We will give supplemental magnesium. May 29. Continue supplemental magnesium. May 30. Magnesium level is normal at 1.8. We will reduce dose of magnesium oxide May 31. Will recheck labs in a.m. (7) Anemia Current Visit: Yes Status: Acute Assessment and plan: May 29. We will order anemia testing in a.m. May 30. Anemia testing is pending May 31. Anemia testing showed iron 33, transferrin saturation 11%, ferritin 116, B12 525, and folate 10.0. We will start ferrous sulfate with vitamin C. Qualifiers: Anemia type: unspecified type Qualified Code(s): D64.9 - Anemia, unspecified - Subjective Interval history: May 28. She has no new complaints May 29. She feels better. She feels she will need to go to a SNF for several days before going home. May 30. She feels better and has no new complaints May 31. She has no new complaints. - Constitutional Vitals: Temp Pulse Resp BP Pulse Ox 98.1 F 77 16 170/67 97 05/31/16 15:12 05/31/16 15:12 05/31/16 15:12 05/31/16 15:12 05/31/16 15:12 Exam: She is sitting on the side of the bed resting comfortably. Her affect is cheerful. I reviewed her medications and lab results. Internal Medicine: Result - Labs CBC & Chem 7: 05/29/16 05:45 05/30/16 07:39 Labs: BMP 05/30/16 07:39 Sodium 139 Potassium 4.3 Chloride 108 Carbon Dioxide 24 BUN 29 H D Creatinine 1.05 D Glucose 201 H Calcium 9.1 Liver Function 05/30/16 Range/Units 07:39 Total Bilirubin 0.3 (0.2-1.2) mg/dL AST 15 (5-34) Units/L ALT 12 (0-55) Units/L Alkaline Phosphatase 112 (38-126) Units/L Albumin 2.8 L D (3.5-5.0) g/dL - ABG Interpretation ABG results: PT/INR, D-dimer PT 13.4 Seconds (9.4-12.1) H 05/27/16 11:00 Consult Discharge Plan - Plan Referrals: NO,PCP [Primary Care Provider] - 1 week
[2016-05-31] MEDS: Insulin DETEMIR 100 UNIT/ML X5UNITS SQ SCH (21:06)
[2016-06-01] MEDS: Insulin LISPRO 300 UNITS/3 ML VIAL SQ SCH ×2 (00:47→07:59)
[2016-06-01 05:41] LABS: Basophils % 0.7 %; Eosinophils # 0.2 K/mcL (0.0-0.6); Eosinophils % 4.5 %; Hematocrit 29.3 % (35.3-44.9); Hemoglobin 10.1 g/dL (11.5-15.4); Lymphocytes # 1.1 K/mcL (0.6-4.6); Lymphocytes % 25.6 %; Mean Corpuscular HGB Conc 34.5 g/dL (31.6-35.5); Mean Corpuscular Hemoglobin 29.8 pg (28.0-33.3); Mean Corpuscular Volume 86.4 fL (83.0-100.0); Mean Platelet Volume 10.8 fL (9.4-12.4); Monocytes # 0.3 K/mcL (0.0-1.3); Monocytes % 6.8 %; Neutrophils # 2.8 K/mcL (1.6-8.9); Platelet Count 227 K/mcL (140-400); Red Blood Count 3.39 M/mcL (3.82-4.97); Red Cell Distribution Width 12.3 % (11.5-14.5); Segmented Neutrophils % 62.4 %
[2016-06-01] MEDS: *HR* Enoxaparin 40 MG/0.4 ML SYRINGE SQ SCH (05:59)
[2016-06-01 06:05] LABS: Alanine Aminotransferase 13 Units/L (0-55); Albumin 2.7 g/dL (3.5-5.0); Albumin/Globulin Ratio 0.8 (1.1-2.2); Alkaline Phosphatase 112 Units/L (38-126); Aspartate Amino Transferase 15 Units/L (5-34); BUN/Creatinine Ratio 23 (6-26); Bilirubin,Total 0.3 mg/dL (0.2-1.2); Blood Urea Nitrogen 24 mg/dL (7-20); Carbon Dioxide 25 mEq/L (19-29); Chloride 104 mEq/L (98-109); Globulin 3.3 g/dL (2.4-3.5); Glucose 367 mg/dL (70-99); Magnesium 1.5 mg/dL (1.6-2.6); Osmolality,Calculated 303 (280-300); Sodium 137 mEq/L (136-145); eGFR For African Americans > 60 (> 60); eGFR For Non-African Americans 55 (> 60)
[2016-06-01] MEDS ORDERED: Ascorbic Acid 500 MG TABLET PO SCH (06:30)
[2016-06-01 07:55] VITALS: BP 149/77
[2016-06-01] MEDS: Gabapentin 400 MG CAPSULE PO SCH (08:00)
[2016-06-01] MEDS: Magnesium Oxide 400 MG TABLET PO SCH (08:00)
[2016-06-01] MEDS: Cholecalciferol (D-3) 1,000 UNIT TABLET PO SCH (08:00)
[2016-06-01] MEDS: Multivit/Ca/Min/Fe/FA 1 TAB TABLET PO SCH (08:01)
[2016-06-01] MEDS: *HR* Metformin 500 MG TABLET PO SCH (08:01)
[2016-06-01] MEDS: Nicotine 14 MG PATCH.TD24 TD SCH (08:01)
--- NOTE | 2016-06-01 09:38 | Discharge Summary ---
Date of Encounter: 06/01/16 Time of Encounter: 09:20 - Discharge Diagnosis (1) Acute gastroenteritis Priority: Primary Status: Resolved (2) Chronic kidney disease, stage 3 Priority: Secondary Status: Chronic (3) Diabetes type 2, uncontrolled Priority: Secondary Status: Chronic Qualifiers: Diabetes mellitus complication status: with kidney complications Diabetes mellitus complication detail: with chronic kidney disease Diabetes mellitus intermediate school teacher insulin use: with [facility] use Chronic kidney disease stage: stage 3 (moderate) Qualified Code(s): E11.22 - Type 2 diabetes mellitus with diabetic chronic kidney disease; E11.65 - Type 2 diabetes mellitus with hyperglycemia; N18.3 - Chronic kidney disease, stage 3 (moderate); Z79.4 - met[place] (current) use of insulin (4) Hypertension Priority: Secondary Status: Chronic Qualifiers: Hypertension type: essential hypertension Qualified Code(s): I10 - Essential (primary) hypertension (5) Urinary retention Priority: Secondary Status: Chronic (6) Hypomagnesemia Priority: Secondary Status: Acute (7) Anemia Priority: Secondary Status: Acute Qualifiers: Anemia type: unspecified type Qualified Code(s): D64.9 - Anemia, unspecified - Discharge Medications Prescriptions: Alprazolam [Xanax 0.5 MG Tablet] 0.25 mg PO TID PRN #90 tablet PRN Reason: Anxiety Gabapentin [Neurontin] 1,200 mg PO TID #180 tablet Tramadol HCl [Ultram] 100 mg PO QID PRN #120 tab PRN Reason: Pain Home Medications: Albuterol Sulfate [Albuterol Inhaler] 2 puff IH QID PRN 02/27/16 [History] Amlodipine [Norvasc] 5 mg PO DAILY 02/27/16 [History] Budesonide/Formoterol 80/4.5 [Symbicort 80/4.5] 2 puff IH BID 02/27/16 [History ] Calcium Carbonate/Vitamin D3 [Calcium 500-Vit D3 200 Caplet] 1 tab PO BIDWM 08/08 [History] Carboxymethylcellulos/Glycerin [Refresh Optive Gel Eye Drops] 1 drop BOTH EYES TID PRN 02/27/16 [History] Insulin ASPART [Novolog Flexpen] 0 unit SQ TIDAC MDD per sliding scale 02/27/16 [History] Metformin [Glucophage] 500 mg PO BIDWM 02/27/16 [History] Multivitamin-Min/Iron/FA/Vit K [Multi-Day Plus Minerals Tablet] 1 each PO DAILY 02/27/16 [History] TraMADol [Ultram] 100 mg PO QID PRN 02/27/16 [History] Atorvastatin [Lipitor] 80 mg PO HS #60 tablet 03/01/16 [Rx] Clopidogrel [Plavix] 75 mg PO DAILY #30 tablet 03/01/16 [Rx] Nicotine Patch [Nicoderm] 14 mg TD DAILY #30 patch.td24 03/01/16 [Rx] Paroxetine [Paxil] 20 mg PO DAILY #30 tablet 03/01/16 [Rx] Alprazolam [Xanax 0.25 MG Tablet] 0.25 mg PO TID PRN #10 tablet 03/02/16 [Rx] Promethazine [Phenergan] 25 mg PO Q8HR #10 tablet 03/19/16 [Rx] Carvedilol 25 mg PO BID 30 Days 03/22/16 [Rx] Alprazolam [Xanax 0.5 MG Tablet] 0.25 mg PO TID PRN #90 tablet 06/01/16 [Rx] Bethanechol [Urecholine] 12.5 mg PO TID tablet 06/01/16 [Rx] Cholecalciferol (Vitamin D3) [Vitamin D3] 1,000 unit PO DAILY #0 06/01/16 [Rx] CloNIDine HCl 0.2 mg PO Q8H tablet 06/01/16 [Rx] Famotidine [Pepcid] 20 mg PO BID PRN 365 Days 06/01/16 [Rx] Gabapentin [Neurontin] 1,200 mg PO TID #180 tablet 06/01/16 [Rx] Insulin DETEMIR [Levemir] 45 unit SQ HS [id number] 06/01/16 [Rx] Magnesium Oxide [Mag-Ox] 400 mg PO BID #0 tablet 06/01/16 [Rx] Promethazine [Phenergan] 12.5 mg PO Q6HR PRN #0 tablet 06/01/16 [Rx] Tramadol HCl [Ultram] 100 mg PO QID PRN #120 tab 06/01/16 [Rx] Allergies/Adverse Reactions: Allergies codeine Adverse Reaction (Verified 02/24/16 10:25) Itching Date of admission: 05/29/16 14:54 Primary care physician: PCP NO Consults: 05/31/16 11:09 Consult to Occupational Therapy [CONS] Routine Comment: Evaluate, develop and implement POC Consult to Physical Therapy [CONS] Routine Comment: Evaluate, develop and implement POC - Patient Status Disposition: Transfer SNF Condition: Fair - Discharge Instructions Follow Up With: NO,PCP [Primary Care Provider] - 1 week Hospital course: Ms. Oakes is a 56 year old female who came to the emergency room complaining of vomiting and diarrhea onset May 24. She has some diffuse abdominal discomfort that seems to be most noticeable in her left lower abdominal area. She denies melena or hematochezia. She was evaluated in emergency room and felt to have gastroenteritis. She was admitted to [facility] for ongoing care needs. Initial orders were written by the emergency room physician. I saw her on May 27 and performed a history and physical. She was given IV fluids and prn anti-emetics. She had gradual resolution of her gastroenteritis symptoms and was able tolerate adequate amounts of food and fluid by the day of discharge. She felt she was too weak to go home and requested placement in a SNF for ongoing therapy and rehabilitation. Arrangements were complete on June 01 her to be discharged to [facility]. Her Cozaar and diuretics were held and her azotemia improved with BUN and creatinine decreasing to 24 and 1.04 respectively with estimated GFR 55 the day of discharge. Anemia testing showed iron 33, transferrin saturation 11%, ferritin 116, B12 525 and folate 10.0. She will be given ferrous sulfate and vitamin C and CBC will be monitored. Her magnesium returned low at 1.4. She will be given magnesium supplement and follow-up magnesium levels will be monitored. Hemoglobin A1c returned elevated at 8.9% on 05/28/2016. Her Levemir was increased to 45 units at bedtime. She was restarted on Glucophage for her renal function improved. Urecholine dose was reduced to 12.5 mg 3 times a day with satisfactory voiding. She will follow with me at [facility]. - Time Spent with Patient Total time spent providing and/or coordinating discharge services: - Constitutional Vitals: Temp Pulse Resp BP Pulse Ox 98.7 F 78 16 149/77 99 06/01/16 07:44 06/01/16 07:44 06/01/16 07:44 06/01/16 07:44 06/01/16 08:17
--- NOTE | 2016-06-01 09:52 | Physician Discharge Referral ---
ExtendedCare Referral Info Transfer To: [facility] Provider in Charge: True Provider in Charge after Transfer: PCP (True) - Diagnosis (1) Acute gastroenteritis Priority: Primary Status: Resolved (2) Chronic kidney disease, stage 3 Priority: Secondary Status: Chronic (3) Diabetes type 2, uncontrolled Priority: Secondary Status: Chronic (4) Hypertension Priority: Secondary Status: Chronic (5) Urinary retention Priority: Secondary Status: Chronic (6) Hypomagnesemia Priority: Secondary Status: Acute (7) Anemia Priority: Secondary Status: Acute Prognosis: Fair Aware of Diagnosis: Patient, Family Aware of Prognosis: Patient, Family - Transfer Medications Prescriptions: Alprazolam [Xanax 0.5 MG Tablet] 0.25 mg PO TID PRN #90 tablet PRN Reason: Anxiety Ascorbic Acid [Vitamin C] 500 mg PO DAILY 365 Days Ferrous Sulfate 325 mg PO DAILY 365 Days Gabapentin [Neurontin] 1,200 mg PO TID #180 tablet Tramadol HCl [Ultram] 100 mg PO QID PRN #120 tab PRN Reason: Pain Home Medications: Albuterol Sulfate [Albuterol Inhaler] 2 puff IH QID PRN 02/27/16 [History] Amlodipine [Norvasc] 5 mg PO DAILY 02/27/16 [History] Budesonide/Formoterol 80/4.5 [Symbicort 80/4.5] 2 puff IH BID 02/27/16 [History ] Calcium Carbonate/Vitamin D3 [Calcium 500-Vit D3 200 Caplet] 1 tab PO BIDWM 08/08 [History] Carboxymethylcellulos/Glycerin [Refresh Optive Gel Eye Drops] 1 drop BOTH EYES TID PRN 02/27/16 [History] Insulin ASPART [Novolog Flexpen] 0 unit SQ TIDAC MDD per sliding scale 02/27/16 [History] Metformin [Glucophage] 500 mg PO BIDWM 02/27/16 [History] Multivitamin-Min/Iron/FA/Vit K [Multi-Day Plus Minerals Tablet] 1 each PO DAILY 02/27/16 [History] TraMADol [Ultram] 100 mg PO QID PRN 02/27/16 [History] Atorvastatin [Lipitor] 80 mg PO HS #60 tablet 03/01/16 [Rx] Clopidogrel [Plavix] 75 mg PO DAILY #30 tablet 03/01/16 [Rx] Nicotine Patch [Nicoderm] 14 mg TD DAILY #30 patch.td24 03/01/16 [Rx] Paroxetine [Paxil] 20 mg PO DAILY #30 tablet 03/01/16 [Rx] Alprazolam [Xanax 0.25 MG Tablet] 0.25 mg PO TID PRN #10 tablet 03/02/16 [Rx] Promethazine [Phenergan] 25 mg PO Q8HR #10 tablet 03/19/16 [Rx] Carvedilol 25 mg PO BID 30 Days 03/22/16 [Rx] Alprazolam [Xanax 0.5 MG Tablet] 0.25 mg PO TID PRN #90 tablet 06/01/16 [Rx] Ascorbic Acid [Vitamin C] 500 mg PO DAILY 365 Days 06/01/16 [Rx] Bethanechol [Urecholine] 12.5 mg PO TID tablet 06/01/16 [Rx] Cholecalciferol (Vitamin D3) [Vitamin D3] 1,000 unit PO DAILY #0 06/01/16 [Rx] CloNIDine HCl 0.2 mg PO Q8H tablet 06/01/16 [Rx] Famotidine [Pepcid] 20 mg PO BID PRN 365 Days 06/01/16 [Rx] Ferrous Sulfate 325 mg PO DAILY 365 Days 06/01/16 [Rx] Gabapentin [Neurontin] 1,200 mg PO TID #180 tablet 06/01/16 [Rx] Insulin DETEMIR [Levemir] 45 unit SQ HS [id number] 06/01/16 [Rx] Magnesium Oxide [Mag-Ox] 400 mg PO BID #0 tablet 06/01/16 [Rx] Promethazine [Phenergan] 12.5 mg PO Q6HR PRN #0 tablet 06/01/16 [Rx] Tramadol HCl [Ultram] 100 mg PO QID PRN #120 tab 06/01/16 [Rx] Allergies/Adverse Reactions: Allergies codeine Adverse Reaction (Verified 02/24/16 10:25) Itching - Respiratory Orders Smoking Cessation: Smoking cessation has been advised. For more information, call the [place] Tobacco Quit Line at 6-728-ARIX-NOW. - Lab Orders Lab Orders: Other (include drug levels w/frequency) (CBC with differential, CMP , magnesium level June 07.) - Mobility Orders Ambulate - Rehabiliation Orders Rehab Potential: Fair Rehab Orders: Evaluation for Physical Therapy, Evaluation for Occupational Therapy - Diet Orders No Concentrated Sweets CERTIFICATION: I certify that the transfer of the above named patient to an Extended Care Facility is necessary for the continuing treatment of the diagnosis listed. The above information is true and accurate reflection of patient's current condition. Confidential - Redisclosure prohibited without a patient's written consent.
[2016-06-01] MEDS: Budesonide/Formoterol 80/4.5 MDI IH SCH (10:22)
== END 2016-06-01 10:59 | DRG 392 ==
LOC: INPPIK 10:20 → EMEROOPIK 10:20 → INPPIK 13:57
PROVIDERS: ADMIT Internal Medicine; ATTEND Internal Medicine